=== PATIENT | male | born 1960 | race Caucasian/White ===

== ENCOUNTER 2020-03-02 20:40 | Inpatient (IN) | payer OTHER ==
[~2020-03-02 20:40] MED LIST: Iopamidol-370 76% 500 ML 1 ML ONE
[2020-03-02] MEDS ORDERED: Cefepime 2 GM VIAL ONE (21:07)
[2020-03-02] MEDS ORDERED: Acetaminophen 500 MG TAB ONE (21:07)
[2020-03-02] MEDS ORDERED: Ondansetron PF 4 MG/2 ML Vial ONE (21:22)
[2020-03-02 21:23] LABS: #Lymphocytes 2.5 thou/uL (1.20-3.40); #Monocytes 0.9 thou/uL (0.11-0.59); %Eosinophils 0.2 % (0.0-10.0); %Lymphocytes 21.5 % (21.0-51.0); %Neutrophils 70.3 % (42.0-75.0); Hemoglobin 12.2 g/dL (14.0-18.0); Mean Corpuscular HGB CONC 33.9 g/dL (32.0-36.0); Mean Corpuscular Hemoglobin 31.5 pg (27.0-31.0); Mean Corpuscular Volume 92.7 fL (78.0-98.0); Mean Platelet Volume 7.9 fL (7.4-10.4); Platelet Count 146 thou/uL (130-400); RBC Distribution Width 13.9 % (11.5-14.5); Red Blood Cell (RBC) Count 3.89 mill/uL (4.70-6.10); White Blood Cell (WBC) Count 11.4 thou/uL (4.8-10.8)
[2020-03-02 21:29] LABS: ALT (SGPT) 26 U/L (8-55); AST (SGOT) 24 U/L (5-34); Albumin 4.4 g/dL (3.5-5.0); Alkaline Phosphatase 78 U/L (40-110); Anion Gap 13 mmol/L (10-20); BUN (Urea Nitrogen) 8 mg/dL (8.4-25.7); Bilirubin, Total 0.9 mg/dL (0.2-1.2); Calc. Creatinine Clearance 0 mL/min (70-130); Calcium 9.3 mg/dL (7.8-10.44); Carbon Dioxide 25 mmol/L (22-29); Chloride 103 mmol/L (98-107); Estimated GFR-MDRD Greater than 90; Globulin 3.1 g/dL (2.4-3.5); Glucose 104 mg/dL (70-105); Potassium 3.3 mmol/L (3.5-5.1); Protein, Total 7.5 g/dL (6.0-8.3); Sodium 138 mmol/L (136-145)
--- NOTE | 2020-03-02 21:30 | RAD ---
RADIOGRAPH CHEST 1 VIEW: DATE: 03/02/2020 HISTORY: 59-year-old male with fever FINDINGS: The thoracic aorta is tortuous and ectatic. There is no evidence of airspace density, pulmonary edema , or pneumothorax. The lateral costophrenic angles are not effaced. IMPRESSION: 1) No acute pulmonary findings. 2) ectasia of thoracic aorta.
[2020-03-02 21:48] LABS: Bacteria/HPF 4+ HPF (None Seen); Bilirubin Negative (Negative); Blood, Urine 1+ (Negative); Clarity Clear (Clear); Glucose, Urine (Dipstick) Normal (Negative); Ketone, Urine Negative (Negative); Leukocyte 500 Leu/uL (Negative); Nitrite 2+ (Negative); Protein, Urine (Dipstick) Negative (Neg-Trace); RBC/HPF 0-3 HPF (0-3); Specific Gravity, Urine 1.007 (1.002-1.036); Squamous Epithelial None Seen HPF (0-3); Urobilinogen Normal mg/dL (Less than 2)
--- NOTE | 2020-03-02 22:07 | CT ---
CT ABDOMEN WITH CONTRAST CT PELVIS WITH CONTRAST: DATE: 03/02/2020 HISTORY: 59-year-old male with fever and left lower quadrant abdominal pain TECHNIQUE: IV injection of iodinated contrast media: Administered Oral contrast media:Not administered FINDINGS: Liver: No focal solid mass. Spleen: No splenomegaly.. Pancreas: No mass or surrounding fat stranding.. Adrenals: No mass.. Kidneys: No hydronephrosis or enhancement abnormalities.. Ureters: No dilation. Bladder: Caro catheter. Diffuse mural thickening.. Abdominal aorta: No aneurysm. Small bowel: No dilation. Colon: No adjacent fat stranding. Appendix: No dilation or adjacent fat stranding.. Free air: None. Free fluid: None. Skeleton: Severe diffuse osteopenia. Mild loss of height of all visualized lumbar vertebral bodies an d thoracic vertebral bodies. IMPRESSION: 1) evidence for cystitis. 2) no evidence of colonic diverticulitis or abscess. 3) severe osteoporosis, and associated multiple mild compression fractures of thoracic spine and lumb ar spine, of indeterminate ages, at least most of which are probably old..
[2020-03-02] MEDS ORDERED: Vancomycin 1 GM/200 ML BAG ONE (23:00)
[2020-03-02] MEDS ORDERED: Acetaminophen 325 MG TAB PO PRN (23:11)
[2020-03-02] MEDS ORDERED: [UNRECOGNIZED DRUG - REMARK] FS PRN (23:11)
[2020-03-02] MEDS ORDERED: Ondansetron ODT 4 MG TAB PO PRN (23:11)
[2020-03-02] MEDS ORDERED: Potassium Chloride 20 MEQ TAB PO SCH (23:15)
--- NOTE | 2020-03-02 23:53 | PDOC.BPN ---
- Brief Progress Note [id number] HP dictated
[2020-03-03 01:30] VITALS: BMI 22.1
[2020-03-03] MEDS: Sodium Chloride 0.9% 1,000 ML IV SCH ×2 (02:13→11:01)
--- NOTE | 2020-03-03 02:34 | HP ---
CHIEF COMPLAINT: Fever. HISTORY OF PRESENT ILLNESS: Mr. 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 Patient received care at [facility], he underwent bone marrow transplant on January 21. Patient presented to an outside emergency room on February 10 with urinary retention, a Caro catheter was placed and remained in place. He was told that he has enlarged prostate? He is complaining of lower abdominal discomfort. Workup in the emergency room, patient was found to be septic, tachycardic, temperature 101.7, and heart rate 124; WBC count is 11.4; hypokalemic with a potassium 3.3. Imaging studies including CT abdomen and pelvis showed evidence of cystitis. Septic workup done in the ED. Patient was started on IV antibiotics. Patient is being admitted to hospital for further management. Also, patient's UA shows signs of urinary tract infection. PAST MEDICAL HISTORY: Multiple myeloma. PAST SURGICAL HISTORY: None. SOCIAL HISTORY: Denies smoking, alcohol drinking, or drug abuse. FAMILY HISTORY: Reviewed and noncontributory. HOME MEDICATIONS: See home medication reconciliation form for updated medications. ALLERGIES: NO KNOWN ALLERGIES. REVIEW OF SYSTEMS: Review of 14 systems negative, except what is mentioned in history of present illness. PHYSICAL EXAMINATION: GENERAL: Patient is awake, alert, in mild distress. VITAL SIGNS: Blood pressure is 125/90, pulse is 124, respiratory rate is 20, temperature 101.7, and pulse saturation is 99% on room air. HEAD AND NECK: Normocephalic, atraumatic. Neck is supple. No JVD. CHEST: Fair bilateral air entry. HEART: S1, S2. Regular. Tachycardic. ABDOMEN: Soft. Lower abdominal tenderness. Bowel sounds present. NEUROLOGIC: Awake, alert, and oriented x3. No focal deficits. PSYCH: Unable to assess. EXTREMITIES: No clubbing or cyanosis. GENITOURINARY: Suprapubic tenderness, Caro catheter in place. LABORATORY DATA: As mentioned above in history of present illness. IMAGING STUDIES: As mentioned above in history of present illness. ASSESSMENT: 1. Sepsis. 2. Acute urinary tract infection/cystitis. 3. Hypokalemia. 4. History of urinary retention with Caro catheter in place. 5. Multiple myeloma. 6. History of chemotherapy. 7. History of bone marrow transplant. PLAN: 1. Admit. 2. Septic workup, including blood cultures and urine cultures. 3. IV antibiotics. 4. IV fluids. 5. Consider Urology consultation while in the hospital. 6. Reconcile home medications. 7. DVT prophylaxis as appropriate. 8. Expected length of stay, 2 midnights or more. Case discussed with ED physician, patient, and patient's family. Job ID: [id number]
[2020-03-03 05:36] LABS: #Eosinphils 0.1 thou/uL (0.0-0.7); #Lymphocytes 1.7 thou/uL (1.20-3.40); #Monocytes 0.8 thou/uL (0.11-0.59); #Neutrophils 4.2 thou/uL (1.40-6.50); %Basophils 0.5 % (0.0-1.0); %Eosinophils 1.2 % (0.0-10.0); %Neutrophils 61.4 % (42.0-75.0); Mean Corpuscular HGB CONC 32.1 g/dL (32.0-36.0); Mean Corpuscular Hemoglobin 29.6 pg (27.0-31.0); Mean Corpuscular Volume 92.2 fL (78.0-98.0); Mean Platelet Volume 7.7 fL (7.4-10.4); Platelet Count 128 thou/uL (130-400); RBC Distribution Width 13.7 % (11.5-14.5); Red Blood Cell (RBC) Count 3.38 mill/uL (4.70-6.10); White Blood Cell (WBC) Count 6.9 thou/uL (4.8-10.8)
[2020-03-03 05:55] LABS: Anion Gap 12 mmol/L (10-20); BUN (Urea Nitrogen) 7 mg/dL (8.4-25.7); Calc. Creatinine Clearance 102 mL/min (70-130); Calcium 8.4 mg/dL (7.8-10.44); Carbon Dioxide 23 mmol/L (22-29); Chloride 110 mmol/L (98-107); Estimated GFR-MDRD Greater than 90; Glucose 88 mg/dL (70-105); Potassium 3.5 mmol/L (3.5-5.1); Sodium 141 mmol/L (136-145)
[2020-03-03] MEDS: Cefepime 2 GM in Sodium Chloride 0.9% 100 ML IVPB SCH ×2 (08:55→21:15)
[2020-03-03] MEDS: Enoxaparin Sodium 40 MG/0.4 ML SYRINGE SC SCH (08:55)
[2020-03-03 09:41] LABS: SARS-CoV-2 MS2 Positive; SARS-CoV-2 N Gene Negative; SARS-CoV-2 S Gene Negative; SARS-CoV-2 by NAA Not Detected (NotDetected); SARS-CoV-2 orf1ab Negative
[2020-03-03] MEDS: Vancomycin 1 GM in Premix Bag 1 BAG IVPB SCH ×2 (11:01→23:09)
--- NOTE | 2020-03-03 12:25 | PDOC.HOSPP ---
- Subjective Encounter Date: 03/03/20 Encounter Time: 12:05 Subjective: Patient was seen and examined at the bedside. Patient reports no overnight events besides some dysuria and urgency. - Objective Vital Signs & Weight: Vital Signs (12 hours) Temp Pulse Resp BP Pulse Ox 03/03/20 11:40 98.3 F 91 20 167/93 H 100 03/03/20 08:10 98.5 F 87 20 161/82 H 100 03/03/20 04:52 98.4 F 82 18 112/64 97 03/03/20 00:50 98.4 F 87 18 131/77 98 Weight Weight 145 lb 9.492 oz I&O: 03/02/20 03/03/20 03/04/20 06:59 06:59 06:59 Intake Total 708 118 Output Total 750 800 Balance -42 682 Result Diagrams: 03/03/20 05:21 03/03/20 05:21 Hospitalist ROS - Review of Systems Constitutional: denies: fever, chills Respiratory: denies: cough, dry, shortness of breath, hemoptysis, SOB with excertion, pleuritic pain, sputum, wheezing Cardiovascular: denies: chest pain, palpitations, edema, light headedness Gastrointestinal: denies: nausea, vomiting, abdominal pain, diarrhea, constipation Genitourinary: reports: dysuria, frequency, hematuria - Medication Medications: Active Medications Generic Name Dose Route Start Last Admin Trade Name Freq PRN Reason Stop Dose Admin Enoxaparin Sodium 40 mg 03/03/20 09:00 03/03/20 08:55 Enoxaparin Sodium 40 Mg/0.4 Ml Syringe SC 40 mg 0900 MELANI Administration Vancomycin HCl 1 gm/ Device 200 mls @ 200 mls/hr 03/03/20 11:00 03/03/20 11:01 IVPB 200 mls 1100,2300 MELANI Administration Sodium Chloride 1,000 mls @ 75 mls/hr 03/02/20 23:15 03/03/20 11:01 Normal Saline 0.9% IV 1,000 mls .[id number] MELANI Administration Cefepime HCl 2 gm/ Sodium 100 mls @ 200 mls/hr 03/03/20 09:00 03/03/20 08:55 Chloride IVPB 100 mls Q12HR MELANI Administration - Exam General Appearance: awake alert Heart: RRR, no murmur, no gallops, no rubs, normal peripheral pulses Respiratory: CTAB, no wheezes, no rales, no ronchi, normal chest expansion, no tachypnea, normal percussion Gastrointestinal: soft, non-tender, non-distended, normal bowel sounds, no palpable masses, no hepatomegaly, no splenomegaly, no bruit, no guarding, no rigidity Hosp A/P - Plan Sepsis due to UTI -Awaiting blood cultures -Urine culture growing gram-negative reji. -receiving vancomycin, cefepime and IV fluids Urinary retention -Urology has been consulted -Will obtain a PSA level to assess for BPH -Consider flomax Probable BPH -As above Accelerated hypertension -Patient is not on any home medications. Blood pressure elevation probably due to pain. - -Given [place] for adequate pain control. -Lopressor as needed to keep the systolic below 150. DVT prophylaxis Care discussed with the student and agree with the above plan.
[2020-03-03] MEDS ORDERED: HYDROcodone/Acetaminophen 5/325 mg Tablet PO PRN (13:30)
[2020-03-03] MEDS ORDERED: Metoprolol Tartrate 5 MG/5 ML VIAL IVP PRN (13:30)
[2020-03-03 16:21] LABS: PSA-Symptomatic (DIAGNOSTIC) 8.84 ng/mL (0-4.0); Thyroid Stimulating Hormone 0.377 uIU/mL (0.35-4.94)
--- NOTE | 2020-03-03 18:15 | CON ---
DATE OF CONSULTATION: 03/03/2020 CHIEF COMPLAINT: Feeling ill. REASON FOR CONSULTATION: Urinary tract infection, retention. HISTORY OF PRESENT ILLNESS: This is a 59-year-old male, who has recently been undergoing treatment for multiple myeloma, first in [place] and then transferred to [place] for stem cell therapy. While staying in [place] after his treatment, he developed urinary retention, and on February 10, had a Caro catheter placed. He saw a urologist there last week, who advised that he keep the catheter for another 2 weeks. He has returned home to [place] with his son over the last 2 days, and yesterday, he began to feel ill with fever over 100. He was brought to the hospital and has been admitted for urinary tract infection and sepsis. His white count on admission was 11.4. He tells me that being treated with antibiotics overnight, he is feeling much better. The catheter is not bothering him. He denies suprapubic pain, flank pain, nausea, vomiting, fevers, or chills. No prior episodes of urinary retention or bothersome urinary symptoms. No prior urologic surgeries. PAST MEDICAL HISTORY: Multiple myeloma. SURGICAL HISTORY: None. SOCIAL HISTORY: Nonsmoker. , two children. FAMILY HISTORY: Reviewed and noncontributory for these issues. HOME MEDICATIONS: When I discussed the medications he is taking at home, it does not sound that he is taking tamsulosin. ALLERGIES: NO MEDICATION ALLERGIES. REVIEW OF SYSTEMS: Ten-point review of systems is negative except as mentioned in my HPI. PHYSICAL EXAMINATION: VITAL SIGNS: Afebrile. Vitals stable overnight. GENERAL: No acute distress. Conversant. HEENT: Head, normocephalic and atraumatic. Extraocular movements are intact. Sclerae are anicteric. NECK: Supple. Trachea midline. LUNGS: Unlabored breathing. Symmetric chest expansion. HEART: Regular rate and rhythm. ABDOMEN: Soft, nontender, nondistended. No flank tenderness. No suprapubic tenderness. : Caro catheter in good position, draining clear urine. Normal exam. SKIN: Warm and dry. EXTREMITIES: No peripheral edema. NEUROLOGIC: Alert and oriented x3. PSYCHIATRIC: Normal mood and affect. LABORATORY DATA: White count is now 6.9. Creatinine 0.72, GFR greater than 90. Urinalysis yesterday, positive nitrite and leukocyte. Urine culture prelim, gram-negative rods. IMAGING DATA: I personally reviewed his CT scan, which shows Caro catheter in position and likely cystitis. ASSESSMENT AND PLAN: Urinary retention, enlarged prostate with lower urinary tract symptoms, catheter associated urinary tract infection. I have ordered that his catheter be exchanged. Given his response and early culture results growing gram-negative rods, he can likely be deescalated to Rocephin. As long as he is doing well overnight, he can discharge with the catheter tomorrow and tamsulosin with plans to follow up with me shortly after Thanksgiving for a void trial. Job ID: [id number]
[2020-03-04] MEDS: Sodium Chloride 0.9% 1,000 ML IV SCH (06:10)
[2020-03-04] MEDS: Enoxaparin Sodium 40 MG/0.4 ML SYRINGE SC SCH (08:30)
[2020-03-04] MEDS: Tamsulosin HCl 0.4 MG CAP PO SCH (08:30)
[2020-03-04] MEDS: Cefepime 2 GM in Sodium Chloride 0.9% 100 ML IVPB SCH (08:31)
[2020-03-04 10:12] LABS: Vancomycin, Trough 12.5 ug/mL
[2020-03-04] MEDS: Vancomycin 1 GM in Premix Bag 1 BAG IVPB SCH (10:37)
[2020-03-04] MEDS ORDERED: Vancomycin HCl 1.25 GM in Sodium Chloride 0.9% 250 ML 250 ML IVPB SCH (11:00)
--- NOTE | 2020-03-04 11:33 | PDOC.HOSPP ---
- Subjective Encounter Date: 03/04/20 Encounter Time: 10:45 Subjective: Patient was seen and examined at the bedside today. Patient has no complaints and slept well last night. He is ambulating. He feels well. - Objective Vital Signs & Weight: Vital Signs (12 hours) Temp Pulse Resp BP Pulse Ox 03/04/20 07:39 98.9 F 84 20 142/84 H 98 03/04/20 05:15 98.9 F 88 16 128/74 97 03/04/20 00:15 98.4 F 84 20 144/77 H 100 Weight Weight 145 lb 9.492 oz I&O: 03/03/20 03/04/20 03/05/20 06:59 06:59 06:59 Intake Total 708 1633 Output Total 750 2400 Balance -42 -917 Result Diagrams: 03/03/20 05:21 03/03/20 05:21 Hospitalist ROS - Review of Systems Constitutional: denies: fever, chills Respiratory: denies: cough, dry, shortness of breath, hemoptysis, SOB with excertion, pleuritic pain, sputum, wheezing Cardiovascular: denies: chest pain, palpitations, orthopnea, paroxysmal noc. dyspnea, edema, light headedness Gastrointestinal: denies: nausea, vomiting, abdominal pain, diarrhea, constipation - Medication Medications: Active Medications Generic Name Dose Route Start Last Admin Trade Name Freq PRN Reason Stop Dose Admin Enoxaparin Sodium 40 mg 03/03/20 09:00 03/04/20 08:30 Enoxaparin Sodium 40 Mg/0.4 Ml Syringe SC 40 mg 0900 MELANI Administration Sodium Chloride 1,000 mls @ 75 mls/hr 03/02/20 23:15 03/04/20 06:10 Normal Saline 0.9% IV 1,000 mls .[id number] MELANI Administration Cefepime HCl 2 gm/ Sodium 100 mls @ 200 mls/hr 03/03/20 09:00 03/04/20 08:31 Chloride IVPB 100 mls Q12HR MELANI Administration Vancomycin HCl 1.25 gm/ Sodium 250 mls @ 166.667 mls/hr 03/04/20 11:00 03/04/20 11:10 Chloride IVPB 250 mls 1100,2300 MELANI Administration Ondansetron HCl 4 mg 03/02/20 23:11 11/20/20 08:37 Ondansetron Odt 4 Mg Tab PO 4 mg Q6H PRN Administration Nausea/Vomiting Tamsulosin HCl 0.4 mg 03/04/20 09:00 03/04/20 08:30 Tamsulosin Hcl 0.4 Mg Cap PO 0.4 mg DAILY MELANI Administration - Exam General Appearance: awake alert Heart: RRR, no murmur, no gallops, no rubs, normal peripheral pulses Respiratory: CTAB, no wheezes, no rales, no ronchi, normal chest expansion, no tachypnea, normal percussion Gastrointestinal: soft, non-tender, non-distended, normal bowel sounds, no palpable masses, no hepatomegaly, no splenomegaly, no bruit, no guarding, no rigidity Hosp A/P - Plan Sepsis due to UTI -Awaiting blood cultures -Urine culture growing gram-negative reji. -receiving vancomycin, cefepime and IV fluids Urinary retention -Urology has been consulted -Will obtain a PSA level to assess for BPH -Consider flomax Probable BPH -As above Accelerated hypertension -Patient is not on any home medications. Blood pressure elevation probably due to pain. - -Given [place] for adequate pain control. -Lopressor as needed to keep the systolic below 150. DVT prophylaxis Care discussed with the student and agree with the above plan. Sepsis due to UTI -Urine culture growing gram-negative reji.------> Citrobacter sensitive to Cipro cephalosporins and Macrobid. -receiving vancomycin, cefepime and IV fluids------------------------------> as blood cultures negative, will de-escalate antibiotics to p.o. -Dr. Blood will follow up in the clinic. -Send him home with Caro. BPH -PSA level of 8.84 -Is on Flomax -Will follow up with Dr. Blood in March Probable discharge home tomorrow.
[2020-03-04] MEDS ORDERED: Cipro 250 MG TAB PO SCH (20:00)
[2020-03-04] MEDS: Ciprofloxacin 500 MG TAB PO SCH (20:09)
[2020-03-05] MEDS: Ciprofloxacin 500 MG TAB PO SCH (06:19)
[2020-03-05] MEDS: Tamsulosin HCl 0.4 MG CAP PO SCH (08:30)
[2020-03-05] MEDS: Enoxaparin Sodium 40 MG/0.4 ML SYRINGE SC SCH (08:30)
[2020-03-05 08:58] VITALS: BP 132/74; TEMP 98.4
--- NOTE | 2020-03-05 10:16 | PDOC.DS.DS ---
Provider - Provider Date of Admission: 03/02/20 23:40 Date of Discharge: 03/05/20 Admitting Provider: Marco Antonio Munguia MD Primary Care Physician: OUT OF TOWN Course - Hospital Course Hospital Course: Discharge Diagnoses: 1. Sepsis secondary to UTI 2. BPH 3. Multiple Myeloma 4. Severe osteoporosis 5. Anemia 6. Hypokalemia Brief HPI: this is a 59 year old male with multiple myeloma s/p bone marrow transplant 01/21 who presented with fevers and chills. He had a recent ramey catheter placed on 02/10. He had a fever of 101.7, heart rate of 124 and WBC of 11.4 upon presentation to the ER. UA showed 11-20 WBC. The patient was given vancomycin and cefepime and admitted for further workup. Hospital Course: Sepsis secondary to UTI: the patient had CT abdomen which was normal. He remained on IV antibiotics. Urine culture grew 100,000 citrobacter freundi. He was switched to oral ciprofloxacin which he tolerated with out fevers. Urology was consulted due to a PSA of 8.84. The patient underwent catheter exchange. He will follow up with Dr. Blood after for a voiding trial and will be discharge with the ramey catheter. Patient is aware of how to use a Ramey catheter and was taught previously in the past. Osteoporosis: It was noted incidentally on a CT scan of his abdomen. Patient was advised to get a vitamin D level done as an outpatient Multiple myeloma: Patient follows with oncologist at [place] and is status post bone marrow transplant on January 21 Pertinent Studies: CT abdomen: no cystitis. No diverticulitis or abscess. Severe osteoporosis with multiple mild compression fractures of thoracic and lumbar spine, most likely old Chest X ray: ectasia of thoracic aorta Resuscitation Status: 03/02/20 23:11 Resuscitation Status Routine Resuscitation Status: FULL: Full Resuscitation - Labs Lab Results: 03/03/20 05:21 03/03/20 05:21 Abnormal Lab Results - Last 48 hrs 03/03/20 15:29: Prostate Specific Ag 8.84 H Microbiology - Entire Visit 03/02/20 21:30 Urine ramey catheter Urine Culture - Final Citrobacter freundii Gram Negative Umer Gram Negative Umer#2 03/02/20 21:00 Venous blood - Left Hand Blood Culture - Preliminary NO GROWTH AT 48 HOURS 03/02/20 20:53 Venous blood - Right Arm Blood Culture - Preliminary NO GROWTH AT 48 HOURS - Physical Exam Vitals: Vital Signs (12 hours) Temp Pulse Resp BP Pulse Ox 03/05/20 08:00 98.4 F 77 16 132/74 03/05/20 00:15 98.6 F 80 16 120/72 99 Weight Weight 145 lb 9.492 oz Physical Exam: The patient was seen and examined on the day of discharge. Problem - Discharge Plan Plan of Treatment: Follow up with Dr. Blood after Thanksgiving for voiding trial - Time spent with Patient (mins): 36 Plan - Discharge Medications Prescriptions: Ciprofloxacin [Cipro] 500 mg PO 599,1999 #10 tab Home Medications: Medication Instructions Recorded Confirmed Type Acyclovir 400 mg PO BID 03/03/20 03/03/20 History Tamsulosin HCl [Flomax] 0.4 mg PO DAILY 03/03/20 03/03/20 History Ciprofloxacin [Cipro] 500 mg PO #10 tab 03/05/20 Rx Allergies: Pork/Porcine Containing Products Allergy (Verified 03/03/20 11:09) - Follow up Plan Referrals: [facility] OF [Primary Care Provider] - Sina Blood MD [Active] - Disposition: HOME Quality - Care Measures CORE MEASURES:: N/A
--- NOTE | 2020-03-05 16:35 | EKG ---
Test Reason : TACHY Blood Pressure : / mmHG Vent. Rate : 125 BPM Atrial Rate : 125 BPM P-R Int : 146 ms QRS Dur : 094 ms QT Int : 322 ms P-R-T Axes : 044 -64 016 degrees QTc Int : 464 ms Sinus tachycardia Left axis deviation Septal infarct , age undetermined Possible Lateral infarct , age undetermined Inferior infarct , age undetermined Abnormal ECG Confirmed by DINA DUKE DO ([id number]), general expeditor MARITA PAYTON ([id number]) on 03/05/2020 4:35:13 PM Referred By: Confirmed By:DINA DUKE DO
== END 2020-03-05 12:35 | disposition home or self-care (01) | DRG 698 ==
LOC: ERS 20:40 → 3SE 23:40
PROVIDERS: ADMIT Internal Medicine; ATTEND Internal Medicine
PROC: 0T2BX0Z Change Drainage Device in Bladder, External Approach (ICD-10-PCS; principal; 2020-03-03)
DX: T83.511A Infection and inflammatory reaction due to indwelling urethral catheter, initial encounter (principal); A41.4 Sepsis due to anaerobes; N30.00 Acute cystitis without hematuria; C90.00 Multiple myeloma not having achieved remission; Z94.81 Bone marrow transplant status; Z20.828 Contact with and (suspected) exposure to other viral communicable diseases; M81.0 Age-related osteoporosis without current pathological fracture; D64.9 Anemia, unspecified; E87.6 Hypokalemia; N40.1 Benign prostatic hyperplasia with lower urinary tract symptoms; R33.8 Other retention of urine; Y84.6 Urinary catheterization as the cause of abnormal reaction of the patient, or of later complication, without mention of misadventure at the time of the procedure; Z91.048 Other nonmedicinal substance allergy status; Z79.899 Other long term (current) drug therapy; Z92.21 Personal history of antineoplastic chemotherapy
CPT/HCPCS: 36415; 71045; 74177; 80048; 80053; 80202; 81003; 81015; 83605; 83690; 84153; 84443; 84484; 85025; 87040; 87077; 87086; 87186; 87635; 93005; 96365; 96375; J0692; J1650; J2405; J3370; J3490; J7050; Q0162; Q9967; U0003

== ENCOUNTER 2020-04-12 12:19 | Emergency (ER) | payer OTHER ==
[2020-04-12 23:43] LABS: SARS-CoV-2 N Gene Positive; SARS-CoV-2 S Gene Positive; SARS-CoV-2 by NAA DETECTED (NotDetected); SARS-CoV-2 orf1ab Positive
[2020-04-12 23:44] LABS: SARS-CoV-2 MS2 Positive
== END 2020-04-12 13:46 | disposition home or self-care (01) ==
LOC: ERS 12:19
DX: U07.1 COVID-19 (principal)
CPT/HCPCS: 87635; 99283; U0003